=== PATIENT | male | born 1990 | race Caucasian/White ===

== ENCOUNTER → 2024-06-16 09:27 | Outpatient (BNVA) | payer MEDICAID, SELFPAY | PROVIDERS: Family Provider Nurse Practitioner Family; PCP Nurse Practitioner Family; Visit Provider Registered Nurse | DX: L98.9 Disorder of the skin and subcutaneous tissue, unspecified (principal) | CPT/HCPCS: 88305 ==

== ENCOUNTER 2024-06-27 15:21 | Emergency (ER) | payer MEDICAID, SELFPAY ==
[2024-06-27 15:43] VITALS: BP 143/86; PULSE 65; TEMP 36.7; O2SAT 98; BMI 29.5
[2024-06-27] MEDS: dexamethasone 10 mg/mL INJ IM (17:26)
--- NOTE | 2024-06-27 17:29 | ED_ITS ---
HPI - Skin/Abscess/Foreign Bdy General: Chief complaint: Skin/Abscess/Foreign Body Stated complaint: rash Time Seen by Provider: 06/27/24 17:10 Source: patient Mode of arrival: ambulatory Limitations: no limitations History of Present Illness: Patient is a 34-year-old male who presents the emergency department complaining of a rash for the past few weeks. States that initially he was treated with iv ermectin for scabies, also had biopsy of lesion on his lower back that showed it was scabies. He was subsequently referred to dermatology but states that he is unable to get into see them until next month. He notes that the rash is starting to ooze due to itching, is to all 4 extremities, abdomen, and scalp. States he recently took prednisone as well as permethrin cream but has not had much relief. Notes that the rash is more itchy than painful. He denies any fever, shortness of breath, or other systemic signs of illness. Denies any potential allergen or contact dermatitis. Vitals within normal limits at this time. MD complaint: rash Onset (ago): week(s) Location: generalized Quality: pruritic Pain Consistency: constant Relieving factors: none Associated symptoms: Deny chills, fever(s), nausea or vomiting Treatments prior to arrival: other (Ivermectin/permethrin/Benadryl/prednisone) Related Data Home Medications ?Medication ?Instructions ?Recorded ?Confirmed permethrin 5 % topical cream 1 applic topical Q14D 06/16/24 Previous Rx's ?Medication ?Instructions ?Recorded ivermectin 3 mg tablet 15 mg (5 x 3 mg) PO Q10D 2 d oses 06/16/24 #2 tabs prednisone 20 mg tablet See Rx Instructions PO DAILY #13 06/16/24 tabs clindamycin HCl 300 mg capsule 300 mg PO BID 7 days #1 4 caps 06/27/24 mupirocin 2 % topical ointment 1 applic topical BID #2 2 grams 06/27/24 (Centany) Allergies Allergy/AdvReac Type Severity Reaction Status Date / Time No Known Allergies Allergy Verified 06/27/24 15:49 Review of Systems General: Reports: 10 or more systems reviewed and unremarkable except in HPI and below Const: Denies: fever(s) or chills Card: Denies: chest pain Resp: Denies: dyspnea GI: Denies: abdominal pain, nausea, vomiting or diarrhea Musc: Denies: extremity pain or joint pain Skin/Breast: Reports: rash, pruritus, erythema and non-healing lesions; Denies: skin pain, skin tenderness or new lesions Neuro: Denies: headache(s) PFSH ED PFSH: Medical History Animal-transmitted scabies Social History Smoking and tobacco/nicotine status: former use of tobacco/nicotine (2014) Physical Exam Const: COMMON NORMALS: no acute distress, average body habitus, patient oriented x3, no limitations, healthy appearing, alert and well nourished HENMT: COMMON NORMALS: normocephalic and atraumatic HEAD & SCALP: normocephalic and atraumatic Neck/C-Spine: COMMON NORMALS: full ROM, no lymphadenopathy, supple and no meningeal signs Resp: COMMON NORMALS: normal respiratory effort, No use of accessory muscles and clear to auscultation bilaterally AUSCULTATION: clear to auscultation bilaterally Cardio: COMMON NORMALS: regular rate and regular rhythm RATE: regular rate RHYTHM: regular rhythm Extremity: COMMON NORMALS: full ROM and capillary refill normal Neuro: COMMON NORMALS: patient oriented x3 SENSORIUM/ORIENTATION: Yes alert MENINGEAL SIGNS: Yes no meningeal signs Skin: COMMON NORMALS: no wounds and turgor normal NARRATIVE SKIN EXAM: Erythematous honey crusted lesions to right anterior thigh, looks consistent with impetigo though there is a base of erythema noted. This rash is also noted to his left upper extremity, bilateral upper extremities, scattered across his abdomen as well as to his scalp. Right lower extremity worse than the rest. No obvious burrowing interdigitally. No active bleeding or oozing. GENERAL SKIN EXAM: turgor normal Course Vital Signs: Vital signs: Vital Signs Temperature 98.0 F 06/27/24 15:43 Pulse Rate 65 06/27/24 15:43 Blood Pressure 143/86 06/27/24 15:43 Pulse Oximetry 98 06/27/24 15:43 Oxygen Delivery Me thod Room Air 06/27/24 15:43 MDM - Skin/Abscess/Foreign Bdy Medicial Decision Making Patient has already been treated with the ivermectin as well as permethrin, unlikely that this is scabies at this time. However this does look to be impetigo specifically to the right upper extremity with the honey colored l esions on erythematous base and will treat with topical mupirocin. Shot of Decadron given here for the systemic inflammation and we will also start him on p.o. antibiotics due to the systemic nature of the rash. Ultimately he has referral already for dermatology so we will keep this as planned and he has no concerning signs of systemic illness at this time so can be discharged home with medications. He agrees with this plan and all the questions and concerns addressed. No radiology studies performed this visit Discharge Plan Discharge Patient Disposition: Home Clinical Impression: Impetigo, Cellulitis Condition: Stable Prescriptions: New mupirocin [Centany] 2 % ointment 1 applic topical BID Qty: 22 0RF clindamycin HCl 300 mg capsule 300 mg PO BID 7 Days Qty: 14 0RF No Action lidocaine (PF) 10 mg/mL (1 %) solution 10 mg SUBCUT ONCE Qty: 1 0RF permethrin 5 % cream 1 applic topical Q14D Rx Instructions: apply second treatment 14 days after first treatment if live lice remain ivermectin 3 mg tablet 15 mg PO Q10D Qty: 2 0RF prednisone 20 mg tablet See Rx Instructions PO DAILY Qty: 13 0RF Rx Instructions: 1 tab BID for 5 days then once a day for next 3 days. Discharge Orders: Discharge ED (Routine); Ordered 06/27/24 Ordered By: Kenneth Phillips Referrals: Yomi Galvan, [facility] [employer] [facility] [employer] [Primary Care Provider] - Patient Instructions: Impetigo (ED), Cellulitis (ED) Activity Restrictions/Additional Instructions: Apply the mupirocin as we discussed. Take clindamycin as prescribed. 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 Return with any shortness of breath, fevers, or other systemic signs of illness. May continue to take Benadryl. Please see the attached patient instructions for further education. Print Language: Serbian Coding Level of Care Code ED [employer] [facility]
[2024-06-27 17:59] VITALS: BP 124/68; PULSE 66; RESP 18; O2SAT 100
== END 2024-06-27 18:00 | disposition home or self-care (01) ==
PROVIDERS: Emergency Provider Physician Assistant; PCP Nurse Practitioner Family
DX: L01.00 Impetigo, unspecified (principal); L03.312 Cellulitis of back [any part except buttock and flank]
CPT/HCPCS: 96372; 99284; J1100

== ENCOUNTER → 2025-02-24 10:40 | Outpatient (BNVA) | payer MEDICAID, SELFPAY | PROVIDERS: PCP Registered Nurse; Visit Provider Registered Nurse | DX: Z79.1 Long term (current) use of non-steroidal anti-inflammatories (NSAID) (principal) | CPT/HCPCS: 80053; 85025 ==